=== PATIENT | male | born 1955 | race American Indian/Alaskan Native ===

== ENCOUNTER 2016-04-04 11:25 | Inpatient (IN) | payer BC, OTHER ==
--- NOTE | 2016-04-04 12:05 | Emergency Department Report ---
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 States on Lisinopril and reports medication compliance. Reports headache, blurred vision, light sensitivity, and sharp pain going from left presybeterian to left arm. Denies pressure-type chest pain, SOB, weakness, tingling. - Exam Vital Signs: Vital Signs 04/04/16 11:42 Temperature 98.7 F Pulse Rate 82 Respiratory 20 Rate Blood Pressure 176/106 O2 Sat by Pulse 96 Oximetry Physical Exam: General: NAD. Heart: RRR. Lungs: equal sounds b/l. Neuro: AAO x3. MSE screening note: Focused history and physical exam performed. Due to findings the following was ordered: EKG, cbc, BMP, UA, Clonidine 0.1 mg PO once. ED Medical Decision Making - Medical Decision Making Patient to see MD in main ED. ED Disposition for MSE Condition: Stable
[2016-04-04] MEDS ORDERED: CATAPRES PO ONE (12:08)
[2016-04-04 12:45] LABS: Basophils % (Auto) 1.1 % (0.0-1.8); Hematocrit 47.8 % (35.5-45.6); Hemoglobin 16.1 gm/dl (11.8-15.2); Mean Corpuscular HGB Conc 34 % (32-34); Mean Corpuscular Hemoglobin 32 pg (28-32); Mean Corpuscular Volume 94 fl (84-94); Platelet Count 198 K/mm3 (140-440); Red Blood Count 5.11 M/mm3 (3.65-5.03); Red Cell Distribution Width 12.8 % (13.2-15.2); White Blood Count 7.5 K/mm3 (4.5-11.0)
[2016-04-04 13:02] LABS: Blood Urea Nitrogen 12 mg/dL (9-20); Calcium 9.2 mg/dL (8.4-10.2); Carbon Dioxide 23 mmol/L (22-30); Glucose 96 mg/dL (75-100)
[2016-04-04 13:03] LABS: Chloride 105.2 mmol/L (98-107); Sodium 145 mmol/L (137-145)
[2016-04-04 13:23] LABS: Anion Gap 21 mmol/L
[2016-04-04 18:07] LABS: Bilirubin,Urine NEG (Negative); Blood,Urine NEG (Negative); Ketones,Urine NEG (Negative); Leukocyte Esterase,Urine NEG (Negative); Nitrite,Urine NEG (Negative); Protein,Urine <15 mg/dL mg/dL (Negative); RBC,Urine < 1.0 /HPF (0.0-6.0); Urobilinogen,Urine < 2.0 mg/dL (<2.0)
[2016-04-04] MEDS ORDERED: CATAPRES ONE ×2 (19:41→19:43)
[2016-04-04] MEDS ORDERED: ZOFRAN IV ONE (22:26)
[2016-04-04] MEDS ORDERED: MORPHINE IV ONE (22:26)
--- NOTE | 2016-04-04 23:00 | Cat Scan Report ---
FINAL REPORT PROCEDURE: CT HEAD/BRAIN WO CON TECHNIQUE: Computerized tomography of the head was performed without contrast material. HISTORY: gurera, uncontrolled htn COMPARISON: No prior studies are available for comparison. FINDINGS: Skull and scalp: Normal. Paranasal sinuses: Normal. Ventricles and subarachnoid spaces: Normal. Cerebrum: No evidence of hemorrhage, acute infarction or mass . Cerebellum and brainstem: No evidence of hemorrhage, acute infarction or mass. Vasculature: Normal. Comments: Mild diffuse atrophy with mild periventricular microischemic change and central lacunar disease. IMPRESSION: No acute intracranial pathology seen at this time
--- NOTE | 2016-04-04 23:19 | Emergency Department Report ---
ED Chest Pain HPI - General Chief Complaint: High BP Stated Complaint: HIGH BP Time Seen by Provider: 04/04/16 22:13 Source: patient Mode of arrival: Ambulatory Limitations: No Limitations - History of Present Illness Initial Comments: 61-year-old male with a past medical history of hypertension and hepatitis C presents to the hospital complains of uncontrolled hypertension, headache, and chest pain. Patient had a DOT physical was noted to have systolic pressure rated 200s. Patient has been compliant with his lisinopril 40 mg daily. He states his blood pressures typically systolic 130s to 180s. He complains of global headache that has been constant and sharp since this started this morning. Patient initially described 8/10 in intensity but has improved to a 5/ 10 in intensity since receiving clonidine 0.1 mg in MSE for blood pressure. Patient also states he had an episode of left-sided chest pain on his lateral thoracic area that radiated to the axilla and down the left arm. Patient denies shortness of breath, nausea, vomiting, or diaphoresis. MSE reports blurred vision and light sensitivity Patient's PMD has been Dr. Maciel in past but recently switched to Dr. Valencia however, he has not yet seen this new physician. Medical record review patient has been on simvastatin in the past as well and he denies continued hydrochlorothiazide use at this time. Patient states last stress test was greater than 5 years ago Severity scale (0 -10): 3 - Related Data Home Medications Medication Instructions Recorded Confirmed Last Taken Lisinopril/Hydrochlorothiazide 1 tab PO DAILY 09/13/13 09/20/13 09/20/13 [Lisinopril-Hctz 10-12.5 mg Tab] Simvastatin 40 mg PO DAILY 09/13/13 09/20/13 09/19/13 Previous Rx's Medication Instructions Recorded Last Taken Type HYDROcodone/APAP 10-325 [[place] 1 each PO Q6HR PRN #60 tablet 09/20/13 Unknown Rx 10/325] metroNIDAZOLE [Flagyl] 250 mg PO Q8HR #20 tablet 09/20/13 Unknown Rx Allergies Allergy/AdvReac Type Severity Reaction Status Date / Time No Known Allergies Allergy Unverified 06/25/13 12:26 RASHEED score - Rasheed Score Age > 65: (0) No Aspirin use within the Past 7 Days: (0) No 3 or more CAD Risk Factors: (1) Yes 2 or more Angina events in past 24 hrs: (0) No Known CAD with more than 50% Stenosis: (0) No Elevated Cardiac Markers: (0) No ST Deviation Greater than 0.5mm: (0) No RASHEED Score: 1 ED Review of Systems ROS: Stated complaint: HIGH BP Other details as noted in HPI Comment: All other systems reviewed and negative Other: Constitutional: No fevers chills Eyes: No eye pain visual changes ENT: No ear pain or throat pain Neck: Denies pain Respiratory: Denies cough wheezing Cardiovascular: Denies palpitations, syncope GI: Denies abdominal pain, nausea, vomiting, diarrhea : Denies dysuria Musculoskeletal: Denies back pain Skin: Denies rash, lesions, erythema Neurologic: Denies numbness, weakness Psychiatric: Denies suicidal ideation, hallucinations ED Past Medical Hx - Past Medical History Previous Medical History?: Yes Hx Hypertension: Yes (DR DE JESUS) Hx Liver Disease: Yes (Hep C) Hx Arthritis: Yes (SHOULDER BARRIE R/T ROTATOR CUFF) - Surgical History Past Surgical History?: No - Social History Smoking Status: Never Smoker Substance Use Type: None - Medications Home Medications: Home Medications Medication Instructions Recorded Confirmed Last Taken Type Lisinopril/Hydrochlorothiazide 1 tab PO DAILY 09/13/13 09/20/13 09/20/13 History [Lisinopril-Hctz 10-12.5 mg Tab] Simvastatin 40 mg PO DAILY 09/13/13 09/20/13 09/19/13 History HYDROcodone/APAP 10-325 [[place] 1 each PO Q6HR PRN #60 tablet 09/20/13 Unknown Rx 10/325] metroNIDAZOLE [Flagyl] 250 mg PO Q8HR #20 tablet 09/20/13 Unknown Rx ED Physical Exam - General Limitations: No Limitations - Other Other exam information: General: No limitations, patient is alert in no acute distress Head exam: Atraumatic, normocephalic Eyes exam: Normal appearance, pupils equal reactive to light, extraocular movements intact ENT: Moist mucous membrane, normal oropharynx Neck exam: Normal inspection, full range of motion, no meningismus nontender Respiratory exam: Clear to auscultation bilateral, no wheezes, rales, crackles Cardiovascular: Normal rate and rhythm, no chest wall tenderness Abdomen: Soft, nondistended, and nontender, with normal bowel sounds, no rebound, or guarding Extremity: Full range of motion normal inspection no deformity, no calf tenderness or edema Back: Normal Inspection, full range of motion, no tenderness Neurologic: Alert, oriented x3, cranial nerves intact, no motor or sensory deficit Psychiatric: normal affect, normal mood Skin: Warm, dry, intact ED Course Vital Signs 04/04/16 04/04/16 04/04/16 11:42 18:12 19:39 Temperature 98.7 F 98.5 F 98.5 F Pulse Rate 82 71 66 Respiratory 20 20 20 Rate Blood Pressure 176/106 167/96 Blood Pressure 196/103 [Right] O2 Sat by Pulse 96 98 98 Oximetry 04/04/16 04/04/16 19:40 22:25 Temperature 98.1 F Pulse Rate 68 71 Respiratory 15 Rate Blood Pressure 196/103 Blood Pressure 160/82 [Right] O2 Sat by Pulse 97 Oximetry - Reevaluation(s) Reevaluation #1: 04/04/16 23:28 Morphine, Zofran, and aspirin ordered. ED Medical Decision Making - Lab Data Result diagrams: 04/04/16 12:33 04/04/16 12:33 Lab Results 04/04/16 04/04/16 04/04/16 Range/Units 12:33 12:33 Unknown WBC 7.5 (4.5-11.0) K/mm3 RBC 5.11 H (3.65-5.03) M/mm3 Hgb 16.1 H (11.8-15.2) gm/dl Hct 47.8 H (35.5-45.6) % MCV 94 (84-94) fl MCH 32 (28-32) pg MCHC 34 (32-34) % RDW 12.8 L (13.2-15.2) % Plt Count 198 (140-440) K/mm3 Lymph % (Auto) 18.7 (13.4-35.0) % [place] % (Auto) 5.8 (0.0-7.3) % Eos % (Auto) 1.0 (0.0-4.3) % Baso % (Auto) 1.1 (0.0-1.8) % Lymph # 1.4 (1.2-5.4) K/mm3 [place] # 0.4 (0.0-0.8) K/mm3 Eos # 0.1 (0.0-0.4) K/mm3 Baso # 0.1 (0.0-0.1) K/mm3 Seg Neutrophils % 73.4 H (40.0-70.0) % Seg Neutrophils # 5.5 (1.8-7.7) K/mm3 Sodium 145 (137-145) mmol/L Potassium 4.0 (3.6-5.0) mmol/L Chloride 105.2 (98-107) mmol/L Carbon Dioxide 23 (22-30) mmol/L Anion Gap 21 mmol/L BUN 12 (9-20) mg/dL Creatinine 0.6 L (0.8-1.5) mg/dL Estimated GFR > 60 ml/min BUN/Creatinine Ratio 20.00 % Glucose 96 (75-100) mg/dL Calcium 9.2 (8.4-10.2) mg/dL Urine Color Straw (Yellow) Urine Turbidity Clear (Clear) Urine pH 7.0 (5.0-7.0) Ur Specific [place] 1.008 (1.003-1.030) Urine Protein <15 mg/dl (Negative) mg/dL Urine Glucose (UA) Neg (Negative) mg/dL Urine Ketones Neg (Negative) mg/dL Urine Blood Neg (Negative) Urine Nitrite Neg (Negative) Urine Bilirubin Neg (Negative) Urine Urobilinogen < 2.0 (<2.0) mg/dL Ur Leukocyte Esterase Neg (Negative) Urine WBC (Auto) 0.0 (0.0-6.0) /HPF Urine RBC (Auto) < 1.0 (0.0-6.0) /HPF - EKG Data -: EKG Interpreted by Me (sinus rate 74 LVH lateral T wave inversion) - EKG Data When compared to previous EKG there are: previous EKG unavailable - Radiology Data Radiology results: report reviewed (ct head:naf) - Medical Decision Making Differential: ICH, intracranial mass Disposition planning: Plan to admit patient to the hospital given complains of left-sided chest pain and poorly controlled blood pressure and significant risk factors. - Differential Diagnosis atypical chest pain, TX, uncontrolled hypertension, hypertensive emergency, Critical Care Time: No Critical care attestation.: If time is entered above; I have spent that time in minutes in the direct care of this critically ill patient, excluding procedure time. ED Disposition Clinical Impression: Chest pain, Uncontrolled hypertension, Headache Disposition: OP ADMITTED IP TO THIS HOSP Is pt being admited?: Yes Does the pt Need Aspirin: Yes Condition: Stable Time of Disposition: 23:18 (Dr García/hosp)
[2016-04-04] MEDS ORDERED: ASPIRIN PO ONE (23:22)
--- NOTE | 2016-04-05 00:27 | History and Physical Report ---
History of Present Illness Date of examination: 04/05/16 Date of admission: 04/05/16 Chief complaint: cp History of present illness: This is a 61-year-old male who presents with past medical history of hypertension and hepatitis C with complaints of headache and chest pain. 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 Patient states that he has been compliant with his medication of lisinopril 40 mg daily. Patient states that his blood pressure typically runs approximately 1:30 to 140. Patient however states that he invariably gets white coat hypertension and attributed his elevated blood pressure to his physical this morning. However, he states there was a definite change with regards to the chest pain. Patient initially described 8/10 in intensity but has improved to a 5/10 in intensity. Patient describes a pain of a sharp character radiating to his left neck, lateral thoracic area and axilla as well as down the left arm. Patient also reports that he had a headache at the time of the physical which now has resolved. Patient states that his last cardiac evaluation was approximately 5 years ago with a stress thallium that was normal. Past History Past Medical History: hepatitis (C), hypertension Past Surgical History: No surgical history Social history: no significant social history Family history: no significant family history Medications and Allergies Allergies Allergy/AdvReac Type Severity Reaction Status Date / Time No Known Allergies Allergy Unverified 06/25/13 12:26 Home Medications Medication Instructions Recorded Confirmed Last Taken Type Lisinopril/Hydrochlorothiazide 1 tab PO DAILY 09/13/13 09/20/13 09/20/13 History [Lisinopril-Hctz 10-12.5 mg Tab] Simvastatin 40 mg PO DAILY 09/13/13 09/20/13 09/19/13 History HYDROcodone/APAP 10-325 [[place] 1 each PO Q6HR PRN #60 tablet 09/20/13 Unknown Rx 10/325] metroNIDAZOLE [Flagyl] 250 mg PO Q8HR #20 tablet 09/20/13 Unknown Rx Active Meds: Active Medications Enoxaparin Sodium (Lovenox) 40 mg SUB-Q QDAY MARYANNE Review of Systems All systems: negative Exam - Constitutional Vitals: Temp Pulse Resp BP Pulse Ox 98.1 F 71 15 160/82 97 04/04/16 22:25 04/04/16 22:25 04/04/16 22:25 04/04/16 22:25 04/04/16 22:25 General appearance: Present: no acute distress, well-nourished - EENT Eyes: Present: PERRL ENT: hearing intact, clear oral mucosa - Neck Neck: Present: supple, normal ROM - Respiratory Respiratory effort: normal Respiratory: bilateral: CTA - Cardiovascular Heart Sounds: Present: S1 & S2. Absent: rub, click - Extremities Extremities: pulses symmetrical, No edema Peripheral Pulses: within normal limits - Abdominal General gastrointestinal: Present: soft, non-tender, non-distended, normal bowel sounds Male genitourinary: Present: normal - Integumentary Integumentary: Present: clear, warm, dry - Musculoskeletal Musculoskeletal: gait normal, strength equal bilaterally - Psychiatric Psychiatric: appropriate mood/affect, intact judgment & insight - Neurologic Neurologic: CNII-XII intact, moves all extremities Results - Labs CBC & Chem 7: 04/04/16 12:33 04/04/16 12:33 Labs: Laboratory Last Values WBC 7.5 K/mm3 (4.5-11.0) 04/04/16 12:33 RBC 5.11 M/mm3 (3.65-5.03) H 04/04/16 12:33 Hgb 16.1 gm/dl (11.8-15.2) H 04/04/16 12:33 Hct 47.8 % (35.5-45.6) H 04/04/16 12:33 MCV 94 fl (84-94) 04/04/16 12:33 MCH 32 pg (28-32) 04/04/16 12:33 MCHC 34 % (32-34) 04/04/16 12:33 RDW 12.8 % (13.2-15.2) L 04/04/16 12:33 Plt Count 198 K/mm3 (140-440) 04/04/16 12:33 Lymph % (Auto) 18.7 % (13.4-35.0) 04/04/16 12:33 [place] % (Auto) 5.8 % (0.0-7.3) 04/04/16 12:33 Eos % (Auto) 1.0 % (0.0-4.3) 04/04/16 12:33 Baso % (Auto) 1.1 % (0.0-1.8) 04/04/16 12:33 Lymph # 1.4 K/mm3 (1.2-5.4) 04/04/16 12:33 [place] # 0.4 K/mm3 (0.0-0.8) 04/04/16 12:33 Eos # 0.1 K/mm3 (0.0-0.4) 04/04/16 12:33 Baso # 0.1 K/mm3 (0.0-0.1) 04/04/16 12:33 Seg Neutrophils % 73.4 % (40.0-70.0) H 04/04/16 12:33 Seg Neutrophils # 5.5 K/mm3 (1.8-7.7) 04/04/16 12:33 Sodium 145 mmol/L (137-145) 04/04/16 12:33 Potassium 4.0 mmol/L (3.6-5.0) 04/04/16 12:33 Chloride 105.2 mmol/L (98-107) 04/04/16 12:33 Carbon Dioxide 23 mmol/L (22-30) 04/04/16 12:33 Anion Gap 21 mmol/L 04/04/16 12:33 BUN 12 mg/dL (9-20) 04/04/16 12:33 Creatinine 0.6 mg/dL (0.8-1.5) L 04/04/16 12:33 Estimated GFR > 60 ml/min 04/04/16 12:33 BUN/Creatinine Ratio 20.00 % 04/04/16 12:33 Glucose 96 mg/dL (75-100) 04/04/16 12:33 Calcium 9.2 mg/dL (8.4-10.2) 04/04/16 12:33 Urine Color Straw (Yellow) 04/04/16 Unknown Urine Turbidity Clear (Clear) 04/04/16 Unknown Urine pH 7.0 (5.0-7.0) 04/04/16 Unknown Ur Specific [place] 1.008 (1.003-1.030) 04/04/16 Unknown Urine Protein <15 mg/dl mg/dL (Negative) 04/04/16 Unknown Urine Glucose (UA) Neg mg/dL (Negative) 04/04/16 Unknown Urine Ketones Neg mg/dL (Negative) 04/04/16 Unknown Urine Blood Neg (Negative) 04/04/16 Unknown Urine Nitrite Neg (Negative) 04/04/16 Unknown Urine Bilirubin Neg (Negative) 04/04/16 Unknown Urine Urobilinogen < 2.0 mg/dL (<2.0) 04/04/16 Unknown Ur Leukocyte Esterase Neg (Negative) 04/04/16 Unknown Urine WBC (Auto) 0.0 /HPF (0.0-6.0) 04/04/16 Unknown Urine RBC (Auto) < 1.0 /HPF (0.0-6.0) 04/04/16 Unknown Assessment and Plan Assessment and plan: 1. Chest pain. Patient will be placed on chest pain pathway and we will follow cardiac isoenzymes. Stress thallium and echocardiogram in a.m. 2. Accelerated hypertension. Patient will resume his home medications. We'll also add hydralazine when necessary. 3. Hyperlipidemia. Continue medications. 4. Hepatitis C. 5. DVT prophylaxis. Lovenox daily.
[2016-04-05] MEDS ORDERED: TYLENOL PO PRN (00:29)
[2016-04-05] MEDS ORDERED: PERCOCET 5/325 PO PRN (00:29)
[2016-04-05] MEDS ORDERED: ZOFRAN IV PRN (00:29)
[2016-04-05] MEDS ORDERED: SODIUM CHLORIDE FLUSH SYRINGE 10 ML IV PRN (00:29)
[2016-04-05] MEDS ORDERED: DULCOLAX PR PRN (00:29)
[2016-04-05] MEDS ORDERED: APRESOLINE IV PRN (00:29)
[2016-04-05] MEDS ORDERED: MILK OF MAGNESIA PO PRN (00:29)
[2016-04-05] MEDS ORDERED: D5/0.45NS 1,000 ML IV SCH (01:00)
--- NOTE | 2016-04-05 04:04 | Admit Criteria Form ---
Admission Criteria Documentation: HEADACHES Clinical Indications for Admission to Inpatient Care (Place 'X' for any and all applicable criteria): Admission is indicated for ANY ONE of the following(1)(2)(3)(4): [X ]I. Inpatient admission required rather than observational care (Also use Headaches: Observation Care as appropriate) because of ANY ONE of the following: [ ]a) Severe pain requiring acute inpatient management [ ]b) Altered mental status that is severe or persistent [ ]c) Vomiting or dehydration that is severe or persistent [ ]d) New-onset focal neurologic deficit that is severe or persistent [X ]e) Hypertension requiring inpatient treatment [ ]f) Severe (new) neurologic findings requiring inpatient care as indicated by ANY ONE of following(9)(10): [ ]1) Papilledema [ ]2) Cerebral edema [ ]3) Mass effect on CT scan [ ]4) Cerebral bleeding, ischemia, or vasospasm(16) [ ]5) Hydrocephalus(17) [ ]6) Uncontrolled seizures [ ]g) IV infusion of anticoagulation, platelet inhibitors vasoactive, or antiarrhythmic medication. [ ]h) Cerebral bleeding, hydrocephalus, or vasospasm monitoring (16) [ ]i) Increased intracranial pressure or cerebral edema monitoring (17) [ ]j) Other condition, treatment or monitoring requiring inpatient admission [ ]II. Unruptured but threatening aneurysm or vascular malformation [ ]III. Venous sinus thrombosis [ ]IV. Increased intracranial pressure [ ]V. Cerebral spinal fluid leak with decreased intracranial pressure [ ]. Medication-overuse headache that has failed all outpatient management options [ ]VII. Vasculitis (eg, giant cell (temporal) arteritis, central nervous system vasculitis) requiring IV corticosteroids, IV antithrombotic therapy, or inpatient monitoring (eg, visual symptoms or findings, other ischemic manifestations)[A](10)(11) Extended stay beyond goal length of stay may be needed for (27): [ ]a) Intractable migraine [ ]b) Subarachnoid or intracranial hemorrhage [ ]c) Malignant hypertension [ ]d) Detoxification from drug withdrawal in medication-overuse headache (29) The original [facility] [employer] content created by [employer] has been revised. The portions of the content which have been revised are identified through the use of italic text or in bold, and [facility] has neither reviewed nor approved the modified material.All other unmodified content is copyright [facility]. Please see references footnoted in the original [facility] edition 2016 Admission Criteria Met: Yes
[2016-04-05 05:01] LABS: Creatine Kinase MB 1.4 ng/mL (0.0-4.0)
[2016-04-05 05:02] LABS: Creatine Kinase 105 units/L (55-170)
[2016-04-05 07:55] LABS: Creatine Kinase MB 1.4 ng/mL (0.0-4.0)
[2016-04-05 07:58] LABS: Creatine Kinase 104 units/L (55-170)
[2016-04-05] MEDS ORDERED: LEXISCAN IV ONE ×2 (09:49→09:53)
[2016-04-05] MEDS ORDERED: HCTZ PO SCH (10:00)
[2016-04-05] MEDS ORDERED: LOVENOX SUB-Q SCH (10:00)
[2016-04-05] MEDS ORDERED: ZESTRIL PO SCH (10:00)
--- NOTE | 2016-04-05 12:46 | Discharge Summary ---
Providers - Providers Date of Admission: 04/04/16 23:22 Date of discharge: 04/05/16 Attending physician: JOSETTE ACKERMAN 04/05/16 Consult to Cardiac Rehabilitation [CONS] Routine Reason For Exam: Phase I Primary care physician: LIBBY GALE Hospitalization Reason for admission: chest pain/controlled blood pressures Condition: Stable Pertinent studies: CT head without contrast; no acute intracranial abnormality noted Nuclear stress test; rate for reversible ischemia, normal left ventricular function Echocardiogram; LVH, left ventricle systolic function is normal, left ventricular ejection fraction 60-65% Hospital course: Very pleasant obese 61-year-old male patient with significant past medical history of hypertension and hepatitis C was admitted through emergency room with the headache and chest pain, patient was admitted to the hospital symptomatically managed noted to have malignant hypertension with systolic blood pressures more than 200s patient was given oral antihypertensives with significant improvement Subsequently admitted to the hospital, patient underwent echocardiogram Lexiscan stress test which was negative for reversible ischemia Patient's blood pressures were brought reasonable control 3 patient is comfortable in bed denies any chest pain shortness of breath alert awake oriented 3 not in acute distress Vital signs reviewed [id number] evaluation physical examination done by me prior to discharge is unremarkable Patient is hemodynamically and clinically stable, advised follow with primary care physician 3-4 days Should have recurrent chest pain patient may need extensive evaluation as outpatient by double needle operator Patient advised dietary modification and exercise as tolerated and weight reduction, verbalized understanding Final diagnosis; Atypical chest pain resolved Hypertension well-controlled Type 2 diabetes mellitus moderate control Dyslipidemia Gastroesophageal reflux disease Costochondritis Obesity Disposition: DISCHARGED TO HOME OR SELFCARE Time spent for discharge: 32 min Core Measure Documentation - Palliative Care Palliative Care/ Comfort Measures: Not Applicable - Core Measures Any of the following diagnoses?: none Exam - Constitutional Vitals: Temp Pulse Resp BP Pulse Ox 97.5 F L 54 L 20 123/71 95 04/05/16 07:40 04/05/16 11:25 04/05/16 07:40 04/05/16 07:40 04/05/16 07:40 General appearance: Present: no acute distress, well-nourished - EENT Eyes: Present: PERRL, EOM intact - Neck Neck: Present: supple, normal ROM - Respiratory Respiratory effort: normal Respiratory: bilateral: diminished, negative: rales, rhonchi, wheezing - Cardiovascular Rhythm: regular Heart Sounds: Present: S1 & S2 - Extremities Extremities: no ischemia, pulses intact, pulses symmetrical Peripheral Pulses: within normal limits - Abdominal General gastrointestinal: Present: soft, non-tender, non-distended, normal bowel sounds - Integumentary Integumentary: Present: clear, warm - Musculoskeletal Musculoskeletal: strength equal bilaterally, generalized weakness - Psychiatric Psychiatric: appropriate mood/affect, cooperative - Neurologic Neurologic: CNII-XII intact, moves all extremities Plan Activity: no restrictions Diet: low salt Additional Instructions: Chest advised diet modification and exercise as tolerated. Advised to be complaints of medications and diet. If you have recurrent chest pain may contact M.D. or go to emergency room for further evaluation Follow up with: LIBBY GALE JR, MD [Primary Care Provider] - 7 Days Forms: Work/School Release Form Prescriptions: Famotidine/Ca Carb/Mag Hydrox [Pepcid Complete Tablet Chew] 1 each PO BID #14 tab.chew Lisinopril/Hydrochlorothiazide [Zestoretic 10-12.5 mg] 1 tab PO QDAY #30 tablet oxyCODONE /ACETAMINOPHEN [Percocet 5/325] 1 tab PO BID PRN #14 tablet PRN Reason: Pain
--- NOTE | 2016-04-05 13:28 | Echocardiography Report ---
Transthoracic Echocardiogram Indication: Chest Pain BP: 117/70 HR: 64 Conclusions *Mild concentric left ventricular hypertrophy is observed. *Global left ventricular systolic function is normal. *The estimated ejection fraction is 60-65%. *The aortic valve is trileaflet. *There is trace of mitral regurgitation. *There is trace tricuspid regurgitation. *The inferior vena cava appears normal in size. *There is no pericardial effusion. Findings Procedure Info: The study quality is fair. Left Ventricle: The left ventricular chamber size is normal. Mild concentric left ventricular hypertrophy is observed. Global left ventricular systolic function is normal. The estimated ejection fraction is 60-65%. Normal left ventricular diastolic filling is observed. Left Atrium: The left atrial chamber size is normal. Right Ventricle: The right ventricular cavity size is normal. The right ventricular global systolic function is normal. Right Atrium: The right atrial cavity size is normal. Aortic Valve: The aortic valve is trileaflet. There is moderate thickening of the non coronary cusp. There is no evidence of aortic regurgitation. There is no evidence of aortic stenosis. The mean gradient of the aortic valve is 4 mmHg. Mitral Valve: The mitral valve leaflets appear normal. There is trace of mitral regurgitation. There is no evidence of mitral stenosis. Tricuspid Valve: The tricuspid valve is not well visualized. There is trace tricuspid regurgitation. No pulmonary hypertension is noted. There is no tricuspid stenosis. Pulmonic Valve: The pulmonic valve is not well visualized. There is mild pulmonic regurgitation. Pericardium: There is no pericardial effusion. No pleural effusion is present. Venous: The inferior vena cava appears normal in size. There is less than 50% respiratory change in the inferior vena cava dimension. Measurements Chambers 2D Name Value Normal Range IVSd (2D) 1.18 cm (0.6 - 1.1) LVPWd 1.4 cm - LVPWd (2D) 1.36 cm (0.6 - 1.1) IVS:LVPW ratio (2D) 0.87 ratio - LVIDd 4.9 cm - LVIDs 3.1 cm - LVIDd (2D) 4.9 cm (3.7 - 5.6) LVIDs (2D) 3.09 cm (2 - 3.8) LV FS (Teichholz) (2D) 36.9 % - LV FS (cube) (2D) 36.9 % - LV EF (2D) 66 % - EF Teichholz (2D) 66.7 % - LA dimension 3.1 cm - Ao root diameter (2D) 3.4 cm (2 - 3.7) LA dimension (AP) 2D 3.1 cm (1.9 - 4) LA:Ao ratio (2D) 0.91 ratio - Volumes/Mass Name Value Normal Range LA ESV SP 4CH (MOD) 31 ml - LV EDV SP 4CH (MOD) 113 ml - LV ESV SP 4CH (MOD) 38 ml - EF SP 4CH (MOD) 66 % - Diastolic/Systolic Function Name Value Normal Range MV E-wave Vmax 0.65 m/sec - MV deceleration time 203 msec - MV A-wave Vmax 0.68 m/sec - MV E:A ratio 1 ratio - LV septal e' Vmax 0.08 m/sec - LV lateral e' Vmax 0.1 m/sec - LV E:e' septal ratio 7.9 ratio - LV E:e' lateral ratio 6.6 ratio - Aortic Valve Name Value Normal Range AV Vmax 1.31 m/sec - AV VTI 25.9 cm - AV peak gradient 7 mmHg - AV mean gradient 4 mmHg - LVOT diameter 2.3 cm - LVOT Vmax 1.15 m/sec - LVOT peak gradient 5 mmHg - SOFIA (continuity Vmax) 3.64 cm2 - Tricuspid Valve Name Value Normal Range TR Vmax 1.71 m/sec - TR peak gradient 12 mmHg - Pulmonic Valve/Qp:Qs Name Value Normal Range PV Vmax 0.71 m/sec - PV peak gradient 2 mmHg - [place] end-diastolic Vmax 0.62 m/sec - PV acceleration time 87 msec -
--- NOTE | 2016-04-05 20:35 | Treadmill Report ---
NUCLEAR STUDY REASON FOR STUDY: Chest pain. IMAGING PROTOCOL: The patient received 10 mCi of Technetium 99m Tetrofosmin for resting image and 28 mCi of Technetium 99m Tetrofosmin for stress imaging. The imaging for the whole procedure was completed 30-90 minutes following the initial injection of Technetium 99m tetrofosmin. The SPECT imaging in the 180 degree arc was performed in the right anterior oblique projection. Computerized reconstruction of the images was performed for analysis. IMAGING RESULTS: Normal cavity size from stress to rest. Normal distribution of radionuclide in the anterior, inferior, septal, and apical regions. Gated SPECT, EF 52% with no wall motion abnormality. The patient infused Lexiscan with no EKG changes. SUMMARY: 1. Negative Lexiscan EKG. 2. Normal rest and stress myocardial perfusion scan. No significant stress ischemia. No wall motion abnormality. Gated SPECT, EF of 52%. JOB# [id number] DEMETRA/CELIA
[2016-04-05] MEDS ORDERED: ZOCOR PO SCH (22:00)
[2016-04-06 13:53] VITALS: BP 152/84
--- NOTE | 2016-04-23 08:26 | Query- Chest Pain ---
Viktoria Stovall Date:__04/23/16 Bacteriology Research Assistant/CDS:Hetal Hutson Phone#:_[phone] Exercise your independent professional judgment when responding to query. Questions asked do not imply a particular answer is desired or expected. We greatly appreciate your clarification on this issue. Clinical Documentation States: 61 Y/O obese male admitted on 04/05/16 with History of hypertension, Hepatitis C presented with chest pain and headache, hound to have systolic pressures in the 200's Discharge summary: Atypical chest pain resolved Clinical Findings Show: Stress test and echo negative for acute cardiac findings Treatment; [ ] Drugs ( NSAIDS, Narcotics, Aspirin, Vasodilators, GI cocktail, Anti- spasmodic); [ ] Cardiac Cath; [ ] Thrombolytic; Please document the etiology of Chest Pain: [ ] Myocardial Infarction [ ] Pneumonia [ ] Mediastinitis [ x] Costochondritis [ ] Pulmonary Embolism [ ] Coronary Artery Disease [x ] GERD [ ] Other: [ ] Comment/Explanation: Present on Admission: [ ] Yes (Y) [ ] Clinically undeterminable (W) [ ] No(N) Please document response in your Progress Notes and/or Discharge Summary and indicate if the condition was present on admission. NASIMA
== END 2016-04-05 14:07 | disposition home or self-care (01) | DRG 206 ==
LOC: ED 11:25 → 4A 23:22
PROVIDERS: ADMIT Hospitalist; ATTEND Internal Medicine
DX: M94.0 Chondrocostal junction syndrome [Tietze] (principal); K21.9 Gastro-esophageal reflux disease without esophagitis; I10 Essential (primary) hypertension; R51 Headache; M19.012 Primary osteoarthritis, left shoulder; M19.011 Primary osteoarthritis, right shoulder; E78.5 Hyperlipidemia, unspecified; E66.9 Obesity, unspecified; E11.9 Type 2 diabetes mellitus without complications; Z79.899 Other long term (current) drug therapy; Z86.19 Personal history of other infectious and parasitic diseases; Z68.29 Body mass index [BMI] 29.0-29.9, adult
CPT/HCPCS: 36415; 70450; 78452; 80048; 81001; 82550; 82553; 84484; 85025; 93005; 93010; 93017; 93306; 96374; 96375; A9502; J1650; J2270; J2405; J2785